=== PATIENT | male | born 1990 | race American Indian/Alaskan Native ===

== ENCOUNTER 2024-01-23 12:44 | Emergency (ER) | payer SELFPAY ==
[2024-01-23] MEDS: Cyclobenzaprine 10 MG Tab PO STA (14:02)
[2024-01-23] MEDS: Dexamethasone 4 MG Tab PO STA (14:02)
[2024-01-23] MEDS: Ketorolac 30 MG/ML SDV IM STA (14:03)
== END 2024-01-23 14:24 | disposition home or self-care (01) ==
LOC: MW.ED 12:44
DX: M62.830 Muscle spasm of back (principal); F17.210 Nicotine dependence, cigarettes, uncomplicated; Z75.8 Other problems related to medical facilities and other health care
CPT/HCPCS: 96372; 99283; A9270; J1885; J8540